=== PATIENT | female | born 2000 | race Caucasian/White ===

== ENCOUNTER 2024-07-14 22:13 | Emergency (ER) | payer BC, SELFPAY ==
[2024-07-14 22:15] VITALS: BP 133/82
[2024-07-14 22:52] VITALS: BMI 18.9
--- NOTE | 2024-07-14 23:29 | ED.GENMED ---
History of Present Illness
General
Chief Complaint: Musculo-Skeletal Complaint
Source: patient and family
Time Seen by Provider: 07/14/24 22:36
History of Present Illness
History of Present Illness:
23-year-old female presents with her jaw dislocated. States this happened before but was able to reduce without doing anything. Tonight she was vomiting after eating hot dogs at school. She states that she think she had food poisoning. Mom
states that her jaw went back in normally last time without any intervention. 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 Does grind her teeth at night. Does not wear a mouth guard
Past History
Past History
ED Past Medical History: None
Phy Exam
Physical Exam
Physical Exam:
CONSTITUTIONAL Vital signs reviewed, Patient alert and oriented to person, place and time. Well-appearing
HEAD atraumatic, normocephalic.
EYES eyelids normal to inspection, Extraocular muscles intact, Conjunctiva normal, Sclera normal.
ENT mouth held open. No stridor. Drooling noted. Tongue normal.
NECK normal range of motion, Trachea midline, no jugular venous distention.
RESP no respiratory distress
BACK No obvious deformities
UPPER EXTREMITY Gross Range of motion normal, gross motor strength normal
LOWER EXTREMITY Gross range of motion normal, Gross motor strength normal
NEURO Speech normal, No focal motor deficits include, Isabel coma scale 15, Memory normal, Cranial Nerves intact to screening exam.
SKIN Skin warm, dry, and normal in color.
PSYCHIATRIC Patient oriented to person place and time, Normal affect.
Course
Vital Signs
Initial and Last Documented VS:
Initial Vital Signs
Pulse Resp BP Pulse Ox
112 18 133/82 100
07/14/24 22:15 07/14/24 22:15 07/14/24 22:15 07/14/24 22:15
Last Documented Vital Signs
Pulse Resp BP Pulse Ox
112 18 133/82 100
07/14/24 22:15 07/14/24 22:15 07/14/24 22:15 07/14/24 22:15
Procedures
Joint/Fracture Reduction
Jaw:
Indication for procedure:: Mandibular dislocation
Procedure completed by: Dr. Salinas
Consent form signed: No
If no, reason: Emergency procedure
Joint reduced: without anesthesia
Injury was: closed
Further treatement: needs re-check only
Post reduction exam: stable
Capillary Refill: normal
MDM/Problems Addressed
MDM/Problems Addressed:
Mandibular dislocation
*Pulse Oximetry
Patient hypoxic: no
*Critical Care Note
Total Time (30-74mins, 75-104mins- exclusive of procedures): Not Applicable
Data Reviewed
Further Testing Considered But Not Given:
Considered x-rays but no trauma
Patient Management
Escalation/DeEscalation of care consider admission/obs:
Mandible reduced without sedation. Sling applied to the jaw via TAWANA bandage. Recommended soft foods and outpatient follow-up with [facility]
ED Attending Note
-
Portions of this chart may have been created with voice recognition software.� Occasional wrong word or��sound alike� substitutions may have occurred due to the inherent limitations of voice recognition software.
Discharge Plan
Departure
Patient Disposition: Home (Routine Discharge)
Date of Disposition: 07/14/24
Time of Disposition: 23:35
Patient with high blood pressure during this ER visit?: No
Discharge Problem:
Vomiting, Closed dislocation of mandible
Instructions: Dislocated Jaw (DC), Acute Nausea and Vomiting
Prescriptions:
New
ondansetron 4 mg tablet,disintegrating
4 mg PO TID PRN (Reason: nausea and vomiting) Qty: 20 0RF
Referrals:
UNKNOWN - PT DOES,NOT KNOW [Family Provider] -
Activity Restrictions/Additional Instructions:
Please only eat soft foods or liquids. Please see oral maxillofacial surgery for follow-up. Consideration of a mouthguard for nighttime use to prevent grinding may be useful and helpful. Use ibuprofen as needed. Avoid opening your mouth fully
for the next 2 weeks.
Interventions
Interventions:
*Risk Screen - Suicide Last Done: 07/14/24 22:52
*General Assessment Last Done: 07/14/24 22:52
*Neglect/Abuse Screening Last Done: 07/14/24 22:52
*ED- Fall Risk Assessment Last Done: 07/14/24 22:52
*ED COVID-19 Vaccine History Last Done: 07/14/24 22:52
ED-Musculoskeletal Assessment Last Done: 07/14/24 22:52
Discharge Date and Time
Print Language: CZECH
== END 2024-07-15 00:13 | disposition home or self-care (01) ==
LOC: EMR 22:13
PROVIDERS: EMERGENCY PHYSICIAN Emergency Medicine
DX: S03.00XA Dislocation of jaw, unspecified side, initial encounter (principal); X58.XXXA Exposure to other specified factors, initial encounter; R11.10 Vomiting, unspecified
CPT/HCPCS: 99283; 21480